=== PATIENT | female | born 1955 | race Caucasian/White ===

== ENCOUNTER → 2017-07-29 | Outpatient (CLI) | payer OTHER ==
[~2017-07-29] MED LIST: CALCAVITDA PO; DULO60; Glucophage1000 MG PO; Humalog Mi100 UNIT/4; INSULANPEN SC; NAPR220 PO
== END | disposition home or self-care (01) ==
LOC: LAB 11:59 → LAB SHORT 11:59
PROVIDERS: Physician Assistant
DX: Z12.4 Encounter for screening for malignant neoplasm of cervix (principal)
CPT/HCPCS: 87624; G0123

== ENCOUNTER 2017-11-06 19:04 | Emergency (ER) | payer OTHER ==
[~2017-11-06] VITALS: Ht 170.2 cm; Wt 93.0 kg
== END 2017-11-06 22:43 | disposition home or self-care (01) ==
LOC: ER 19:04
DX: M25.562 Pain in left knee (principal); M25.561 Pain in right knee; Z91.048 Other nonmedicinal substance allergy status; Z79.4 Long term (current) use of insulin; Z79.84 Long term (current) use of oral hypoglycemic drugs; Z79.899 Other long term (current) drug therapy; F32.9 Major depressive disorder, single episode, unspecified; I10 Essential (primary) hypertension; E11.9 Type 2 diabetes mellitus without complications
CPT/HCPCS: 73562-LT; 99283-25

== ENCOUNTER → 2018-07-29 | Outpatient (CLI) | payer OTHER ==
[~2018-07-29] MED LIST changes: +ASPI81CH; +GLIP5; +IBUP400; +Lisinopril2.5 MG; +MELA3; +Pravastatin Sod40 MG
== END | disposition home or self-care (01) ==
LOC: LAB SHORT 10:06 → LAB EV 10:06
DX: L02.512 Cutaneous abscess of left hand (principal)
CPT/HCPCS: 87070; 87077; 87147; 87186; 87205

== ENCOUNTER 2019-01-10 06:44 | Emergency (ER) | payer MEDICARE, OTHER ==
[~2019-01-10] VITALS: Ht 167.6 cm; Wt 90.7 kg
[2019-01-10 07:32] LABS: BASOPHILS ABSOLUTE AUTO 0.02 K/mm3 (0.00-0.23); BASOPHILS PERCENT AUTO 0 % (0-2); EOSINOPHILS ABSOLUTE AUTO 0.09 K/mm3 (0.00-0.68); EOSINOPHILS PERCENT AUTO 2 % (0-6); Hematocrit 39.6 % (33.0-51.0); IMMATURE GRAN ABSOLUTE AUTO 0.02 K/mm3 (0.00-0.10); IMMATURE GRAN PERCENT AUTO 0 % (0-1); LYMPHOCYTES ABSOLUTE AUTO 0.63 K/mm3 (0.84-5.20); LYMPHOCYTES PERCENT AUTO 13 % (21-46); MONOCYTES ABSOLUTE AUTO 0.47 K/mm3 (0.16-1.47); MONOCYTES PERCENT AUTO 10 % (4-13); Mean Corpuscular HGB 29.5 pg (26.0-34.0); Mean Corpuscular HGB Conc 32.8 g/dL (31.5-36.5); Mean Corpuscular Volume 90 fL (80-100); Mean Platelet Volume 9.7 fL (9.1-12.4); NEUTROPHILS ABSOLUTE AUTO 3.66 K/mm3 (1.96-9.15); NEUTROPHILS PERCENT AUTO 75 % (41-73); Platelet Count 187 K/mm3 (150-400); RDW Coefficient Variation 12.6 % (11.7-14.2); RDW Standard Deviation 41.2 fL (35.1-46.3); Red Blood Cell Count 4.41 M/mm3 (3.80-5.20); White Blood Cell Count 4.89 K/mm3 (4.00-11.30)
[2019-01-10] MEDS ORDERED: METF500 PO (07:32)
[2019-01-10 07:44] LABS: Anion Gap 8 mmol/L (6-16); Blood Urea Nitrogen 14 mg/dL (8-24); CO2, Blood 25 mmol/L (21-32); Calcium, Blood 8.9 mg/dL (8.5-10.1); Chloride, Blood 104 mmol/L (98-108); Creatinine, Blood 0.56 mg/dL (0.40-1.00); Glomerular Filtration Rate >60 (60-); Glucose, Blood 413 mg/dL (70-99); Potassium, Blood 4.1 mmol/L (3.5-5.5); Sodium, Blood 137 mmol/L (136-145)
[2019-01-10] MEDS ORDERED: Ultram50 MG PO (08:34)
== END 2019-01-10 08:46 | disposition home or self-care (01) ==
LOC: ER 06:44
PROVIDERS: Emergency Medicine
DX: S20.212A Contusion of left front wall of thorax, initial encounter (principal); E11.65 Type 2 diabetes mellitus with hyperglycemia; Z91.048 Other nonmedicinal substance allergy status; Z79.4 Long term (current) use of insulin; Z79.899 Other long term (current) drug therapy; Z79.82 Long term (current) use of aspirin; F32.9 Major depressive disorder, single episode, unspecified; I10 Essential (primary) hypertension; W01.118A Fall on same level from slipping, tripping and stumbling with subsequent striking against other sharp object, initial encounter
CPT/HCPCS: 71046; 80048; 85025; 93005; 93010; 96374; 96375; 99284-25; J2405; J3010

== ENCOUNTER → 2019-01-25 | Outpatient (CLI) | payer MEDICARE ==
[~2019-01-25] MED LIST changes: +METF500 PO; +Ultram50 MG PO
== END | disposition home or self-care (01) ==
LOC: LAB EV 18:12 → LAB SHORT 18:12
DX: E11.65 Type 2 diabetes mellitus with hyperglycemia (principal)
CPT/HCPCS: 87086

== ENCOUNTER 2019-03-16 08:48 | Emergency (ER) | payer MEDICARE ==
[~2019-03-16] VITALS: Ht 167.6 cm; Wt 99.8 kg
[~2019-03-16 08:48] MED LIST changes: -DULO60; +DULO60 PO; -Humalog Mi100 UNIT/4; +Humalog Mi100 UNIT/4 SC; -Lisinopril2.5 MG; +Lisinopril2.5 MG PO; -Pravastatin Sod40 MG; +Pravastatin Sod40 MG PO
[2019-03-16 09:33] LABS: BASOPHILS ABSOLUTE AUTO 0.01 K/mm3 (0.00-0.23); BASOPHILS PERCENT AUTO 0 % (0-2); EOSINOPHILS ABSOLUTE AUTO 0.01 K/mm3 (0.00-0.68); EOSINOPHILS PERCENT AUTO 0 % (0-6); Hematocrit 39.8 % (33.0-51.0); IMMATURE GRAN ABSOLUTE AUTO 0.03 K/mm3 (0.00-0.10); IMMATURE GRAN PERCENT AUTO 0 % (0-1); LYMPHOCYTES ABSOLUTE AUTO 0.64 K/mm3 (0.84-5.20); LYMPHOCYTES PERCENT AUTO 6 % (21-46); MONOCYTES ABSOLUTE AUTO 0.84 K/mm3 (0.16-1.47); MONOCYTES PERCENT AUTO 8 % (4-13); Mean Corpuscular HGB 28.8 pg (26.0-34.0); Mean Corpuscular HGB Conc 32.7 g/dL (31.5-36.5); Mean Corpuscular Volume 88 fL (80-100); Mean Platelet Volume 9.6 fL (9.1-12.4); NEUTROPHILS ABSOLUTE AUTO 8.73 K/mm3 (1.96-9.15); NEUTROPHILS PERCENT AUTO 85 % (41-73); Platelet Count 184 K/mm3 (150-400); RDW Coefficient Variation 12.8 % (11.7-14.2); RDW Standard Deviation 41.2 fL (35.1-46.3); Red Blood Cell Count 4.51 M/mm3 (3.80-5.20); White Blood Cell Count 10.26 K/mm3 (4.00-11.30)
[2019-03-16 09:47] LABS: Alanine Aminotransfer (ALT/SGP 28 U/L (12-78); Albumin/Globulin Ratio 0.7 (0.8-1.8); Alk Phos 179 U/L (50-136); Anion Gap 7 mmol/L (6-16); Aspartate Aminotrans (AST/SGOT 26 U/L (12-37); Bilirubin, Total 1.2 mg/dL (0.1-1.0); Blood Urea Nitrogen 9 mg/dL (8-24); Bun/Creatinine Ratio 18.1 (12.0-20.0); CO2, Blood 27 mmol/L (21-32); Calcium, Blood 8.5 mg/dL (8.5-10.1); Chloride, Blood 101 mmol/L (98-108); Globulin, Blood 4.2 g/dL (2.2-4.0); Glomerular Filtration Rate >60 (60-); Glucose, Blood 331 mg/dL (70-99); Potassium, Blood 4.3 mmol/L (3.5-5.5); Sodium, Blood 135 mmol/L (136-145); Total Protein, Blood 7.2 g/dL (6.4-8.2); Troponin I <0.015 ng/mL (0.000-0.040)
[2019-03-16 10:19] LABS: Influenza A Negative (NEGATIVE); Influenza B Negative (NEGATIVE)
[2019-03-16] MEDS ORDERED: Zithromax250 MG PO (10:46)
[2019-03-16] MEDS ORDERED: ALBU90OI INH (10:46)
[2019-03-16] MEDS ORDERED: PRED20 PO (10:51)
== END 2019-03-16 10:55 | disposition home or self-care (01) ==
LOC: ER 08:48
PROVIDERS: Physician Assistant
DX: R05 Cough (principal); I10 Essential (primary) hypertension; E11.9 Type 2 diabetes mellitus without complications; F32.9 Major depressive disorder, single episode, unspecified; Z79.899 Other long term (current) drug therapy
CPT/HCPCS: 36415; 71046; 80053; 84484; 85025; 87804; 93005; 93010; 96360; 99284-25; J7030

== ENCOUNTER 2019-03-21 02:25 | Emergency (ER) | payer MEDICARE ==
[~2019-03-21] VITALS: Ht 167.6 cm; Wt 91.2 kg
[~2019-03-21 02:25] MED LIST changes: +ALBU90OI INH; +PRED20 PO; +Zithromax250 MG PO
[2019-03-21 03:36] LABS: BASOPHILS ABSOLUTE AUTO 0.02 K/mm3 (0.00-0.23); BASOPHILS PERCENT AUTO 0 % (0-2); EOSINOPHILS ABSOLUTE AUTO 0.03 K/mm3 (0.00-0.68); EOSINOPHILS PERCENT AUTO 0 % (0-6); Hematocrit 39.5 % (33.0-51.0); Hemoglobin 12.6 g/dL (11.5-16.0); IMMATURE GRAN ABSOLUTE AUTO 0.09 K/mm3 (0.00-0.10); IMMATURE GRAN PERCENT AUTO 1 % (0-1); LYMPHOCYTES ABSOLUTE AUTO 0.51 K/mm3 (0.84-5.20); LYMPHOCYTES PERCENT AUTO 4 % (21-46); MONOCYTES ABSOLUTE AUTO 1.12 K/mm3 (0.16-1.47); MONOCYTES PERCENT AUTO 10 % (4-13); Mean Corpuscular HGB 28.3 pg (26.0-34.0); Mean Corpuscular HGB Conc 31.9 g/dL (31.5-36.5); Mean Corpuscular Volume 89 fL (80-100); Mean Platelet Volume 9.4 fL (9.1-12.4); NEUTROPHILS ABSOLUTE AUTO 9.88 K/mm3 (1.96-9.15); NEUTROPHILS PERCENT AUTO 85 % (41-73); Platelet Count 276 K/mm3 (150-400); RDW Coefficient Variation 12.7 % (11.7-14.2); RDW Standard Deviation 41.1 fL (35.1-46.3); Red Blood Cell Count 4.46 M/mm3 (3.80-5.20); White Blood Cell Count 11.65 K/mm3 (4.00-11.30)
[2019-03-21 03:47] LABS: Source, Urine Clean Catch
[2019-03-21 03:49] LABS: Appearance, Urine Clear (Clear); Bilirubin, Urine Neg (Neg); Blood, Urine Neg (Neg); Color, Urine Yellow (P-Yellow); Glucose Qualitative, Urine 4+ (Neg); Ketones, Urine 4+ (Neg); Leukocyte Esterase, Urine Neg (Neg); Nitrite, Urine Neg (Neg); Protein, Urine 1+ (Neg); Specific Gravity, Urine 1.025 (1.003-1.022); Urobilinogen, Urine NORM (Normal)
[2019-03-21 03:52] LABS: Alanine Aminotransfer (ALT/SGP 19 U/L (12-78); Albumin, Blood 2.4 g/dL (3.4-5.0); Albumin/Globulin Ratio 0.5 (0.8-1.8); Alk Phos 154 U/L (50-136); Anion Gap 13 mmol/L (6-16); Aspartate Aminotrans (AST/SGOT 15 U/L (12-37); Bilirubin, Total 1.2 mg/dL (0.1-1.0); Blood Urea Nitrogen 9 mg/dL (8-24); Bun/Creatinine Ratio 17.9 (12.0-20.0); CO2, Blood 19 mmol/L (21-32); Calcium, Blood 8.6 mg/dL (8.5-10.1); Chloride, Blood 100 mmol/L (98-108); Globulin, Blood 4.4 g/dL (2.2-4.0); Glomerular Filtration Rate >60 (60-); Glucose, Blood 402 mg/dL (70-99); Sodium, Blood 132 mmol/L (136-145); Total Protein, Blood 6.8 g/dL (6.4-8.2)
== END 2019-03-21 07:36 | disposition home or self-care (01) ==
LOC: ER 02:25
PROVIDERS: Emergency Medicine
DX: S09.90XA Unspecified injury of head, initial encounter (principal); F32.9 Major depressive disorder, single episode, unspecified; I10 Essential (primary) hypertension; E11.9 Type 2 diabetes mellitus without complications; Z91.048 Other nonmedicinal substance allergy status; Z79.899 Other long term (current) drug therapy; Z79.4 Long term (current) use of insulin; Z79.82 Long term (current) use of aspirin; Z79.51 Long term (current) use of inhaled steroids; W18.2XXA Fall in (into) shower or empty bathtub, initial encounter
CPT/HCPCS: 36415; 70450; 72125; 80053; 83690; 85025; 93005; 93010; 96374; 99284-25; J2405

== ENCOUNTER 2019-03-22 19:49 | Inpatient (IN) | payer MEDICARE ==
[~2019-03-22] VITALS: Ht 172.7 cm; Wt 93.3 kg
[2019-03-22 20:22] LABS: PCO2 Arterial 12.7 mmHg (35-45); PO2 Arterial 94.1 mmHg (80-100)
[2019-03-22 20:24] LABS: BASOPHILS ABSOLUTE AUTO 0.12 K/mm3 (0.00-0.23); BASOPHILS PERCENT AUTO 1 % (0-2); EOSINOPHILS PERCENT AUTO 0 % (0-6); Hemoglobin 14.1 g/dL (11.5-16.0); IMMATURE GRAN ABSOLUTE AUTO 0.83 K/mm3 (0.00-0.10); IMMATURE GRAN PERCENT AUTO 4 % (0-1); LYMPHOCYTES ABSOLUTE AUTO 0.86 K/mm3 (0.84-5.20); LYMPHOCYTES PERCENT AUTO 4 % (21-46); MONOCYTES ABSOLUTE AUTO 2.28 K/mm3 (0.16-1.47); MONOCYTES PERCENT AUTO 10 % (4-13); Mean Corpuscular HGB 28.5 pg (26.0-34.0); Mean Corpuscular HGB Conc 30.7 g/dL (31.5-36.5); Mean Platelet Volume 9.2 fL (9.1-12.4); NEUTROPHILS ABSOLUTE AUTO 19.65 K/mm3 (1.96-9.15); NEUTROPHILS PERCENT AUTO 83 % (41-73); Platelet Count 538 K/mm3 (150-400); RDW Coefficient Variation 13.5 % (11.7-14.2); RDW Standard Deviation 45.5 fL (35.1-46.3); Red Blood Cell Count 4.95 M/mm3 (3.80-5.20); White Blood Cell Count 23.74 K/mm3 (4.00-11.30)
[2019-03-22 20:29] LABS: Mean Corpuscular Volume 93 fL (80-100)
[2019-03-22 20:43] LABS: Troponin I 0.069 ng/mL (0.000-0.040)
[2019-03-22 21:11] LABS: Beta-hydroxybutyrate 74.4 mg/dL (0.2-2.8)
[2019-03-22 21:12] LABS: Alanine Aminotransfer (ALT/SGP 20 U/L (12-78); Albumin, Blood 2.4 g/dL (3.4-5.0); Albumin/Globulin Ratio 0.4 (0.8-1.8); Alk Phos 218 U/L (50-136); Anion Gap 22 mmol/L (6-16); Aspartate Aminotrans (AST/SGOT 17 U/L (12-37); Bilirubin, Total 0.8 mg/dL (0.1-1.0); Blood Urea Nitrogen 11 mg/dL (8-24); Bun/Creatinine Ratio 16.4 (12.0-20.0); CO2, Blood 6 mmol/L (21-32); Calcium, Blood 8.6 mg/dL (8.5-10.1); Chloride, Blood 99 mmol/L (98-108); Creatinine, Blood 0.67 mg/dL (0.40-1.00); Globulin, Blood 5.6 g/dL (2.2-4.0); Glomerular Filtration Rate >60 (60-); Glucose, Blood 593 mg/dL (70-99); Potassium, Blood 4.6 mmol/L (3.5-5.5); Sodium, Blood 127 mmol/L (136-145)
[2019-03-22 22:00] LABS: Source, Urine Clean Catch
[2019-03-22 22:02] LABS: Bilirubin, Urine Neg (Neg); Blood, Urine 2+ (Neg); Glucose Qualitative, Urine 4+ (Neg); Ketones, Urine 4+ (Neg); Leukocyte Esterase, Urine Neg (Neg); Nitrite, Urine Neg (Neg); Protein, Urine 2+ (Neg); Urobilinogen, Urine NORM (Normal)
[2019-03-22 22:03] LABS: Appearance, Urine Clear (Clear); Color, Urine Yellow (P-Yellow)
[2019-03-22 22:15] LABS: Amorphous Light (0-Heavy); Bacteria Many /hpf; Hyaline Casts 0-2 /lpf (0-2); Mucus Light (0-Heavy); Squamous Epithelial Cells Mod /hpf (Few); White Blood Cells, Urine 0-2 /hpf (0-5)
[2019-03-22 22:59] LABS: Glucose, Blood 531 mg/dL (70-99)
--- NOTE | 2019-03-23 00:30 | NUR ---
PT ARRIVES TO ROOM ICU 13 FROM ED AT 2355. REPORT RECEIVED AND ASSUMED CARE. PT PRESENTS ON INSULIN DRIP AT 5 UNITS PER HOUR. CARDIAZEM DRIP AT 15MG/HOUR. WITH FLUID CHALLENGE AT 250 ML/HOUR. PT HAS TACHYCARDIA IN 150'S. THIS HAS BEGUN TO DECREASE. WILL TITRATE CARDIAZEM ABLE TO MAINTAIN HR AT OR BELOW 100 BPM. PT HAS NO COMPLAINTS OF ABDOMINAL PAIN OR DISTRESS. NO COMPLAINTS OF CHEST PAIN OR PRESSURE. WILL REVIEW CHART AND PLAN OF CARE FOR THIS PT.
[2019-03-23] MEDS ORDERED: GABA100 PO (00:48)
[2019-03-23] MEDS ORDERED: CENTRUM SILVER1 EAC2 PO (00:49)
[2019-03-23 01:10] LABS: Anion Gap 17 mmol/L (6-16); Blood Urea Nitrogen 10 mg/dL (8-24); Bun/Creatinine Ratio 18.5 (12.0-20.0); CO2, Blood 8 mmol/L (21-32); Calcium, Blood 7.5 mg/dL (8.5-10.1); Chloride, Blood 109 mmol/L (98-108); Creatinine, Blood 0.54 mg/dL (0.40-1.00); Glomerular Filtration Rate >60 (60-); Glucose, Blood 391 mg/dL (70-99); Potassium, Blood 4.4 mmol/L (3.5-5.5); Sodium, Blood 134 mmol/L (136-145)
--- NOTE | 2019-03-23 03:00 | NUR ---
PT HAS RETURN OF PCR LAB INDICATING SHE IS PARAINFLUENZA POSITIVE. PT CONTINUES ON ROOM AIR AND IS ABLE TO MAINTAIN > 90 PERCENT SATURATION. NO COMPLAINTS OTHER THAN COUGH. COMTINUING WITH INSULIN DRIP. CARDIAZEM DOWN TO 10 MG PER HOUR. WILL CONTINUE TO MONITOR.
[2019-03-23 03:51] LABS: Adenovirus Not Detected (NOT DETECT); Bordetella pertussis Not Detected (NOT DETECT); Chlamydophila pneumoniae Not Detected (NOT DETECT); Coronavirus 229E Not Detected (NOT DETECT); Coronavirus HKU1 Not Detected (NOT DETECT); Coronavirus NL63 Not Detected (NOT DETECT); Coronavirus OC43 Not Detected (NOT DETECT); Human Metapneumovirus Not Detected (NOT DETECT); Human Rhinovirus/Enterovirus Not Detected (NOT DETECT); Influenza A Not Detected (NOT DETECT); Influenza A/2009-H1 Not Detected (NOT DETECT); Influenza A/H1 Not Detected (NOT DETECT); Influenza A/H3 Not Detected (NOT DETECT); Influenza B Not Detected (NOT DETECT); Mycoplasma pneumoniae Not Detected (NOT DETECT); Parainfluenza Virus 1 Detected (NOT DETECT); Parainfluenza Virus 2 Not Detected (NOT DETECT); Parainfluenza Virus 3 Not Detected (NOT DETECT); Parainfluenza Virus 4 Not Detected (NOT DETECT); Respiratory Syncytial Virus Not Detected (NOT DETECT)
[2019-03-23 04:04] LABS: BASOPHILS PERCENT AUTO 1 % (0-2); EOSINOPHILS PERCENT AUTO 0 % (0-6); Hematocrit 40.9 % (33.0-51.0); IMMATURE GRAN ABSOLUTE AUTO 0.28 K/mm3 (0.00-0.10); IMMATURE GRAN PERCENT AUTO 1 % (0-1); LYMPHOCYTES ABSOLUTE AUTO 0.91 K/mm3 (0.84-5.20); LYMPHOCYTES PERCENT AUTO 5 % (21-46); MONOCYTES ABSOLUTE AUTO 1.69 K/mm3 (0.16-1.47); MONOCYTES PERCENT AUTO 8 % (4-13); Mean Corpuscular HGB Conc 31.8 g/dL (31.5-36.5); Mean Corpuscular Volume 91 fL (80-100); Mean Platelet Volume 8.9 fL (9.1-12.4); NEUTROPHILS ABSOLUTE AUTO 17.34 K/mm3 (1.96-9.15); NEUTROPHILS PERCENT AUTO 85 % (41-73); Platelet Count 379 K/mm3 (150-400); RDW Coefficient Variation 13.3 % (11.7-14.2); RDW Standard Deviation 43.8 fL (35.1-46.3); Red Blood Cell Count 4.49 M/mm3 (3.80-5.20); White Blood Cell Count 20.32 K/mm3 (4.00-11.30)
[2019-03-23 04:25] LABS: Troponin I 0.071 ng/mL (0.000-0.040)
[2019-03-23 04:36] LABS: Anion Gap 15 mmol/L (6-16); Blood Urea Nitrogen 8 mg/dL (8-24); Bun/Creatinine Ratio 16.3 (12.0-20.0); CO2, Blood 8 mmol/L (21-32); Calcium, Blood 7.7 mg/dL (8.5-10.1); Chloride, Blood 112 mmol/L (98-108); Creatinine, Blood 0.49 mg/dL (0.40-1.00); Glomerular Filtration Rate >60 (60-); Glucose, Blood 299 mg/dL (70-99); Potassium, Blood 4.4 mmol/L (3.5-5.5); Sodium, Blood 135 mmol/L (136-145)
--- NOTE | 2019-03-23 05:45 | NUR ---
PT HAS CONTINUED ON INSULIN DRIP, CURRENTLY AT 4 UNITS PER HOUR. MOST RECENT CBG BEING 249. WILL CONTACT MD FOR POTENTIAL IVF CHANGE. CARDIAZEM HAS BEEN TITRATED DOWN FROM 15 MG PER HOUR TO 5MG. PT CURRENTLY IN ATRIAL FLUTTER WITH RATE REMAINING 90'S. REMAINS WITH MOIST UNPRODUCTIVE COUGH. AFEBRILE. WILL CONTINUE TO MONITOR PT, AND WILL REPORT OFF TO ONCOMING RN.
--- NOTE | 2019-03-23 07:47 | NUR ---
ASSUMED CARE RECIEVED REPORT FROM DONNY SMITH. PT IS LYING IN BED ASLEEP. CURRENT GTTPS: INSULIN 4 UNITS/HR, CARDIZEM 5MG/HR, AND D5W 15OML/HR. BED LOW AND LOCKED. CALL LIGHT WITHIN REACH.
[2019-03-23 09:30] LABS: Anion Gap 10 mmol/L (6-16); Blood Urea Nitrogen 8 mg/dL (8-24); Bun/Creatinine Ratio 17.1 (12.0-20.0); CO2, Blood 13 mmol/L (21-32); Calcium, Blood 7.6 mg/dL (8.5-10.1); Chloride, Blood 114 mmol/L (98-108); Creatinine, Blood 0.47 mg/dL (0.40-1.00); Glomerular Filtration Rate >60 (60-); Glucose, Blood 226 mg/dL (70-99); Potassium, Blood 3.9 mmol/L (3.5-5.5); Sodium, Blood 137 mmol/L (136-145)
--- NOTE | 2019-03-23 14:44 | NUR ---
INSULIN LANTUS WAS GIVEN AT 1100. INSULIN GTTP INFUSING AT 6 UNITS/KG/HR AT THIS POINT. DR DOUGLAS WANTED ME TO BEGIN TITRATING TO OFF 2 HOURS AFTER LANTUS WAS GIVEN. SEE TITRATIONS IN FLOWSHEET. INSULIN OFF AT 1437. REGULAR ACTING INSULIN TO BE GIVEN 4-5 HOURS AFTER LANTUS WAS GIVEN. IT IS ON A Q6H SLIDING SCALE. WILL GIVE BETWEEN [phone].
[2019-03-23 15:56] LABS: Anion Gap 8 mmol/L (6-16); Blood Urea Nitrogen 7 mg/dL (8-24); Bun/Creatinine Ratio 14.7 (12.0-20.0); CO2, Blood 13 mmol/L (21-32); Calcium, Blood 7.5 mg/dL (8.5-10.1); Chloride, Blood 113 mmol/L (98-108); Creatinine, Blood 0.48 mg/dL (0.40-1.00); Glomerular Filtration Rate >60 (60-); Glucose, Blood 214 mg/dL (70-99); Potassium, Blood 3.8 mmol/L (3.5-5.5); Sodium, Blood 134 mmol/L (136-145); Troponin I 0.042 ng/mL (0.000-0.040)
--- NOTE | 2019-03-23 16:42 | NUR ---
UPDATE PLACED CALL TO DR DOUGLAS TO UPDATE HIM ON PT. TOLD ME TO KEEP HER ON CARDIZEM GTTP FOR NOW SHE IS STILL IN AFLUTTER, START HER ON ELIQUIS, AND GIVE HER A FLUID BOLUS TO HELP WITH LOWER BLOOD PRESSURES. TOLD ME NOT TO WORRY ABOUT PT/OT CONSULTATIONS QUITE YET. AND I INFORMED HIM ABOUT THE MOST RECENT LABS ANDD THE INSULIN SITUATION.
--- NOTE | 2019-03-23 17:55 | NUR ---
UPDATE/BLOOD PRESSURE PT WAS HAVING SEVERAL LOW BP'S IN A ROW; MAP<65. A 500CC BOLUS (OVER 2 HOURS) HAS BEEN INFUSING BP HAS SINCE NORMALIZED. SHE IS ALSO STILL GETTING HER LAST BAG OF D5-1/2NS WITH 20MEQ KCL. PT HAS NO COMPLAINTS OR DISCOMFORTS AT THIS MOMENT. SHE IS SLIGHTLY TACHYPNEIC, 24-30. O2 SATS ARE MAINTAINED IN THE MID 90'S. SHE IS ORIENTED TO SELF, PLACE, SITUATION AND FAMILY. AND SHE HAS VOIDED MULTIPLE TIMES TODAY, UNFORTUNATELY WERE UNMEASURED.
--- NOTE | 2019-03-23 18:49 | NUR ---
SHIFT SUMMARY PT HAS IMPROVED IN CONDITION THROUGHOUT THE DAY. CO2 INCREASED FROM 8-13; GAP IS DOWN TO 10, POTASSIUM HAS REMAINED NORMAL, AND SUGARS HAVE BECOME STABLE BETWEEN 170-220. SHE IS OFF THE INSULIN GTTP AND IS NOW RECEIVING LANTUS ONCE A DAY, AND REGULAR SLIDING SCALE Q6H. SHE IS STILL IN AFLUTTER AND REMAINS ON THE CARDIZEM GTTP AT 5MG/HR. SHE IS ON D5-1/2NS WITH 20MEQ KCL AT 150ML/HR. SHE DENIES PAIN AND SOB. SEE EARLIER NOTE REGARDING BRIEF SPAN OF HYPOTENSION. SHE WILL EVENTUALLY NEED PT AND OT EVALUATIONS AND TREATMENTS, I BELIEVE, FOR SHE IS VERY WEAK AND LIVES BY HERSELF AT HER HOME. BED LOW AND LOCKED. CALL LIGHT WITHIN REACH.
--- NOTE | 2019-03-23 20:00 | NUR ---
ASSUMPTION OF CARE: PT A&O, AFEBRILE. LUNG SOUNDS DIM IN BASES. SPO2 >90% ON RA, SOME SOB. PT IN AFLUTTER, HR IN 100S, SBP 90S. VOIDING. 2 IVS IN R AC SL AND 18G IN LAC. CARDIZEM AT 5MG, D51/2NS OFF AND DISCONNECTED. NO COMPLAINTS AT THIS TIME. WILL CONTINUE TO MONITOR.
[2019-03-24 04:10] LABS: BASOPHILS ABSOLUTE AUTO 0.03 K/mm3 (0.00-0.23); BASOPHILS PERCENT AUTO 0 % (0-2); EOSINOPHILS ABSOLUTE AUTO 0.07 K/mm3 (0.00-0.68); EOSINOPHILS PERCENT AUTO 1 % (0-6); Hematocrit 38.2 % (33.0-51.0); Hemoglobin 12.3 g/dL (11.5-16.0); IMMATURE GRAN ABSOLUTE AUTO 0.16 K/mm3 (0.00-0.10); IMMATURE GRAN PERCENT AUTO 1 % (0-1); LYMPHOCYTES PERCENT AUTO 6 % (21-46); MONOCYTES ABSOLUTE AUTO 1.16 K/mm3 (0.16-1.47); MONOCYTES PERCENT AUTO 9 % (4-13); Mean Corpuscular HGB Conc 32.2 g/dL (31.5-36.5); Mean Platelet Volume 9.3 fL (9.1-12.4); NEUTROPHILS ABSOLUTE AUTO 10.48 K/mm3 (1.96-9.15); NEUTROPHILS PERCENT AUTO 83 % (41-73); Platelet Count 315 K/mm3 (150-400); RDW Coefficient Variation 13.3 % (11.7-14.2); RDW Standard Deviation 41.2 fL (35.1-46.3); Red Blood Cell Count 4.39 M/mm3 (3.80-5.20)
[2019-03-24 04:11] LABS: Mean Corpuscular Volume 87 fL (80-100)
[2019-03-24 04:27] LABS: Anion Gap 9 mmol/L (6-16); Blood Urea Nitrogen 5 mg/dL (8-24); Bun/Creatinine Ratio 10.9 (12.0-20.0); CO2, Blood 17 mmol/L (21-32); Calcium, Blood 7.8 mg/dL (8.5-10.1); Chloride, Blood 110 mmol/L (98-108); Creatinine, Blood 0.46 mg/dL (0.40-1.00); Glomerular Filtration Rate >60 (60-); Glucose, Blood 209 mg/dL (70-99); Potassium, Blood 3.3 mmol/L (3.5-5.5); Sodium, Blood 136 mmol/L (136-145)
--- NOTE | 2019-03-24 05:37 | NUR ---
SHIFT SUMMARY: PT A&O, COOPERATIVE. AFEBRILE THROUGHOUT SHIFT. PT WAS IN AFLUTTER AT BEGINNING OF SHIFT. AT 1230 CONVERTED TO SR THEN BACK TO A FLUTTER AND THEN HAD A RUN OF ASYMPTOMATIC V TACH BEFORE GOING BACK INTO A FLUTTER. HR REMAINS IN THE 100S, SBP STABLE IN THE 90-100S. LUNG SOUNDS DIM IN BASES. SPO2 >90% ON RA WITH SOB AT TIMES. PT IS ABLE TO VOID USING BEDPAN, HOWEVER DOES HAVE EPISODES OF INCONTINENCE. RAC IV X 2-SL. L AC INFUSING WITH CARDIZEM AT 5MG. PT CURRENTLY RESTING COMFORTABLY.
--- NOTE | 2019-03-24 07:30 | NUR ---
ASSUMED CARE OF PATIENT; SEE ASSESSMENT CHARTING FOR DETAILS. LUNGS WITH INTERMITTENT RHONCHI IN UPPER LOBES WHICH CLEAR WITH COUGH; COUGH IS MOIST BUT NON-PRODUCTIVE. BIOX 92-95% ON ROOM AIR. MONITOR REMAINS WITH A-FLUTTER; RATE 80'S; VSS AND REMAINS AFEBRILE. OCCASIONALLY, WILL HAVE RUNS OF VENTRICULAR BEATS BUT ASYMPTOMATIC. APPETITE LIMITED BUT NO N/V. 2+ ANKLE/PEDAL EDEMA; PATIENT STATES THIS IS NOT UNCOMMON FOR HER. 3 PERIPHERAL IV SITES; ALL ARE SALINE LOCKED.
--- NOTE | 2019-03-24 09:02 | NUR ---
UP TO BSC WITH 1 PERSON ASSIST.; FELT SLIGHT DIZZYNESS ON RETURN TO BED BUT OVERALL TOLERATED WELL (FIRST TIME OOB SINCE ADMISSION). VOIDED 500ML OF MED. YELLOW URINE.
--- NOTE | 2019-03-24 09:29 | NUR ---
DR. CORBIN IN; PLANS TO CHANGE PATIENT TO PCU STATUS NOW THAT HER DKA AND AFIB STABILIZED; SEE ORDERS.
--- NOTE | 2019-03-24 11:05 | NUR ---
REPORT CALLED TO GORAN COWAN RN; PATIENT TO TRANSFER TO PCU 10.
--- NOTE | 2019-03-24 11:50 | NUR ---
TRANSFERRED TO PCU, ROOM 10, VIA RECLINER CHAIR. MEDS, CHART AND BELONGINGS WITH PATIENT. PATIENT UP IN CHAIR AFTER HER BATH AND TOLERATED WELL; REMAINS WITHOUT NEED OF OXYGEN AND RHYTHM REMAINS AFLUTTER WITH REASONABLE RATE.
--- NOTE | 2019-03-24 13:04 | NUR ---
Pt Transfer to PCU arrival at 1150 in wheelchair. Pt alert and oriented, but tired. VSS. Breathing even and unlabored on RA, lungs coarse to ausc and clears with strong cough. Pt to bsc with one moderate assist. pt with weak, unsteady gait. She is high fall risk. Non slip sock on to ensure safety, pt educated on calling before ambulation. Pt verabalized understanding. No acute concerns at this time.
[2019-03-24 15:29] LABS: Anion Gap 8 mmol/L (6-16); Blood Urea Nitrogen 7 mg/dL (8-24); Bun/Creatinine Ratio 16.5 (12.0-20.0); CO2, Blood 16 mmol/L (21-32); Calcium, Blood 7.6 mg/dL (8.5-10.1); Chloride, Blood 109 mmol/L (98-108); Creatinine, Blood 0.42 mg/dL (0.40-1.00); Glomerular Filtration Rate >60 (60-); Glucose, Blood 306 mg/dL (70-99); Potassium, Blood 3.5 mmol/L (3.5-5.5); Sodium, Blood 133 mmol/L (136-145)
--- NOTE | 2019-03-24 16:04 | NUR ---
Pt resting comfortably this afternoon. lungs continue to sound coarse and clear with cough. faint end expiratory wheeze auscultated in R middle andR lower lobes. pt denies SOB, breathing even and unlaboreded. Will continue to monitor.
--- NOTE | 2019-03-24 18:41 | NUR ---
Shift Summary No acute changes this shift. Pt remains alert and oriented, able to express needs and use call light. Up to bsc for voiding, uses FWW. Breathing is even and unlabored, non productive moist cough. VSS. Tele showing sinus rhythm since arrival to PCU. No acute concerns to note. Pt states "I'm feeling so much better today". Report off to NOC RN who assumes care.
--- NOTE | 2019-03-24 21:34 | NUR ---
A+O, RESTING in bed watching tv, took prescribed medication as prscribed, arms strong with full range of motion, good profusion extremities, legs weak, abx infusing with no s/sx of infection or infiltration, rm air, vss, able to eat a little more still not up to home rate, no abdmn pain, alarm on bed, will continue to monitor and treat as appropriate
[2019-03-25 04:26] LABS: BASOPHILS ABSOLUTE AUTO 0.03 K/mm3 (0.00-0.23); BASOPHILS PERCENT AUTO 0 % (0-2); EOSINOPHILS ABSOLUTE AUTO 0.08 K/mm3 (0.00-0.68); EOSINOPHILS PERCENT AUTO 1 % (0-6); Hematocrit 33.3 % (33.0-51.0); Hemoglobin 11.2 g/dL (11.5-16.0); IMMATURE GRAN ABSOLUTE AUTO 0.14 K/mm3 (0.00-0.10); IMMATURE GRAN PERCENT AUTO 1 % (0-1); LYMPHOCYTES ABSOLUTE AUTO 0.74 K/mm3 (0.84-5.20); LYMPHOCYTES PERCENT AUTO 8 % (21-46); MONOCYTES ABSOLUTE AUTO 0.84 K/mm3 (0.16-1.47); MONOCYTES PERCENT AUTO 9 % (4-13); Mean Corpuscular HGB 28.5 pg (26.0-34.0); Mean Corpuscular HGB Conc 33.6 g/dL (31.5-36.5); Mean Corpuscular Volume 85 fL (80-100); NEUTROPHILS ABSOLUTE AUTO 7.83 K/mm3 (1.96-9.15); NEUTROPHILS PERCENT AUTO 81 % (41-73); Platelet Count 276 K/mm3 (150-400); RDW Coefficient Variation 13.6 % (11.7-14.2); RDW Standard Deviation 41.6 fL (35.1-46.3); Red Blood Cell Count 3.93 M/mm3 (3.80-5.20); White Blood Cell Count 9.66 K/mm3 (4.00-11.30)
[2019-03-25 04:40] LABS: Anion Gap 8 mmol/L (6-16); Blood Urea Nitrogen 8 mg/dL (8-24); Bun/Creatinine Ratio 17.1 (12.0-20.0); CO2, Blood 20 mmol/L (21-32); Calcium, Blood 7.7 mg/dL (8.5-10.1); Chloride, Blood 109 mmol/L (98-108); Creatinine, Blood 0.47 mg/dL (0.40-1.00); Glomerular Filtration Rate >60 (60-); Glucose, Blood 211 mg/dL (70-99); Potassium, Blood 3.4 mmol/L (3.5-5.5); Sodium, Blood 137 mmol/L (136-145)
--- NOTE | 2019-03-25 06:34 | NUR ---
pt remains a+o, cheerful and cooperative, she has been medicated as prescribed, up to bsc with walker and standby assist, rm air, saline locked, will continue to monitor and treat until bsr is shared with day nurse and pt, remains weak but states she is feeling better, remains in isolation for mersa in the wound
--- NOTE | 2019-03-25 19:22 | NUR ---
SHIFT SUMMARY Pt remains alert and oriented, VSS, improved mobility this shift. Pt able to make needs knonw. No acute changes from initial shift assessment. Sinus rhythm on tele, denies chest pain or pressure. Breathing is even and unlabored, lunges clearing with cough. Pt with more energy today. Plan is for possible discharge tomorrow or status change. No acute concerns this shift
--- NOTE | 2019-03-25 19:59 | NUR ---
A+O, DENIES PAIN, LIMBS MOVE WELL, ABLE TO MAKE NEEDS KNOWN, LS CLEAR, ABX INFUSING WITH NO S/SX INFECTION OR INFILTRATION, CALL LIGHT IN REACH, RECEIVED REPORT FROM PREVIOUS SHIFT, MOVING TO AND FROM BATHROOM, NO PAIN WHEN URINATING, VSS, HEART RATE OF ST 110, WILL CONTINUE TO MONITOR AND TREAT
--- NOTE | 2019-03-25 21:13 | NUR ---
reported pain to arm where azithromyacin infusing, stopped, flushed with ns, pain, stopped, pt described it as ache from injection site up to shoulder, with itching, stopped abx started other abx via new pump line but same IV, no pain or itching reported, askd for notiication and checked in to verify lack of negative reaction to iv, called hospitalist reported symptoms, recommended holding rest (75/250) of abx, notify day shift, asked for call if any other s/sx of allergic reaction, will continue to monitor and treat as appropriate, pt currently sitting in bed in low position with call light in reach
[2019-03-26 04:05] LABS: BASOPHILS ABSOLUTE AUTO 0.03 K/mm3 (0.00-0.23); BASOPHILS PERCENT AUTO 0 % (0-2); EOSINOPHILS ABSOLUTE AUTO 0.07 K/mm3 (0.00-0.68); EOSINOPHILS PERCENT AUTO 1 % (0-6); Hematocrit 34.5 % (33.0-51.0); Hemoglobin 11.2 g/dL (11.5-16.0); IMMATURE GRAN ABSOLUTE AUTO 0.17 K/mm3 (0.00-0.10); IMMATURE GRAN PERCENT AUTO 2 % (0-1); LYMPHOCYTES ABSOLUTE AUTO 0.85 K/mm3 (0.84-5.20); LYMPHOCYTES PERCENT AUTO 10 % (21-46); MONOCYTES PERCENT AUTO 10 % (4-13); Mean Corpuscular HGB Conc 32.5 g/dL (31.5-36.5); Mean Corpuscular Volume 86 fL (80-100); Mean Platelet Volume 8.9 fL (9.1-12.4); NEUTROPHILS ABSOLUTE AUTO 6.27 K/mm3 (1.96-9.15); NEUTROPHILS PERCENT AUTO 76 % (41-73); Platelet Count 267 K/mm3 (150-400); RDW Coefficient Variation 13.7 % (11.7-14.2); RDW Standard Deviation 42.3 fL (35.1-46.3); White Blood Cell Count 8.19 K/mm3 (4.00-11.30)
[2019-03-26 04:26] LABS: Anion Gap 7 mmol/L (6-16); Blood Urea Nitrogen 6 mg/dL (8-24); Bun/Creatinine Ratio 11.7 (12.0-20.0); CO2, Blood 24 mmol/L (21-32); Calcium, Blood 7.7 mg/dL (8.5-10.1); Chloride, Blood 109 mmol/L (98-108); Creatinine, Blood 0.52 mg/dL (0.40-1.00); Glomerular Filtration Rate >60 (60-); Glucose, Blood 158 mg/dL (70-99); Potassium, Blood 3.4 mmol/L (3.5-5.5); Sodium, Blood 140 mmol/L (136-145)
--- NOTE | 2019-03-26 06:38 | NUR ---
a+o, ready to go home, labs looking good, potassium 3.3, no acute changes noted during shift, was resting comfortably each time went in to assess or to monitor, cbg's checked and recorded, treated per may, call light in reach, bed in low position, saline locked, on rm air, will continue to monitor and treat until share bsr with day staff and pt
[2019-03-26] MEDS ORDERED: ELIQUIS5 MG PO (09:57)
[2019-03-26] MEDS ORDERED: DOXY100 PO (09:58)
[2019-03-26] MEDS ORDERED: DILT60ER PO (09:58)
--- NOTE | 2019-03-26 11:21 | NUR ---
DISCHARGE: PT DISCHARGED TO HOME WITH HER MOM. PT ABLE TO TRANSFER SELF TO THEN CAR WITH HER CANE. FACESHEET FAXED TO [facility]. MEDS FAXED TO [facility] IS[facility] OPEN ON SUNDAYS. DISCHARGE INSTRUCTIONS REVIEWED WITH PT. PT VERBALIZED UNDERSTANDING OF ALL MEDICATION CHANGES AND FOLLOW UP APPT. ALL BELONGINGS SENT HOME WITH PT.
== END 2019-03-26 11:10 | disposition home health service (06) | DRG 871 ==
LOC: ER 19:49 → ICUW 23:43 → PCU 03-24 11:49
PROVIDERS: Emergency Medicine; Internal Medicine Endocrinology, Diabetes & Metabolism; Nurse Practitioner Acute Care; Physician Assistant; Student in an Organized Health Care Education/Training Program; ADMIT Internal Medicine
DX: A41.89 Other specified sepsis (principal); E11.10 Type 2 diabetes mellitus with ketoacidosis without coma; J12.2 Parainfluenza virus pneumonia; I48.92 Unspecified atrial flutter; I10 Essential (primary) hypertension; Z79.82 Long term (current) use of aspirin; Z90.13 Acquired absence of bilateral breasts and nipples; E11.40 Type 2 diabetes mellitus with diabetic neuropathy, unspecified; F32.9 Major depressive disorder, single episode, unspecified; R79.89 Other specified abnormal findings of blood chemistry; E66.3 Overweight; Z68.30 Body mass index [BMI] 30.0-30.9, adult; Z66 Do not resuscitate; Z79.4 Long term (current) use of insulin; Z85.3 Personal history of malignant neoplasm of breast
CPT/HCPCS: 0099U; 36415; 36600; 71045; 80048; 80053; 81001; 82010; 82803; 82947; 83605; 84484; 85025; 87040; 87077; 87086; 87186; 93005; 93010; 93306; 94760; 96361; 96365; 96366; 96368; 96375; 96376; 97116; 97162; 99285-25; A9270; J0456; J0696; J1650; J1815; J2765; J3480; J7030; J7050; J7070

== ENCOUNTER → 2020-09-03 | Outpatient (CLI) | payer MEDICARE, OTHER ==
[~2020-09-03] MED LIST changes: +CENTRUM SILVER1 EAC2 PO; +DILT60ER PO; +DOXY100 PO; +ELIQUIS5 MG PO; +GABA100 PO
== END ==
LOC: LAB SHORT 21:18
DX: L28.1 Prurigo nodularis (principal); D48.5 Neoplasm of uncertain behavior of skin; R21 Rash and other nonspecific skin eruption; L81.4 Other melanin hyperpigmentation; D22.5 Melanocytic nevi of trunk; L57.8 Other skin changes due to chronic exposure to nonionizing radiation; Z71.89 Other specified counseling
CPT/HCPCS: 87070; 87077; 87147; 87186; 87205

== ENCOUNTER → 2020-10-23 | Outpatient (CLI) | payer MEDICARE, OTHER | LOC: LAB SHORT 15:40 → LAB 15:40 | DX: D22.5 Melanocytic nevi of trunk (principal); D22.62 Melanocytic nevi of left upper limb, including shoulder; L08.9 Local infection of the skin and subcutaneous tissue, unspecified; L57.8 Other skin changes due to chronic exposure to nonionizing radiation; L85.3 Xerosis cutis; Z48.02 Encounter for removal of sutures; Z71.89 Other specified counseling | CPT/HCPCS: 87070; 87205 ==

== ENCOUNTER 2024-07-06 10:59 | Emergency (ER) | payer OTHER ==
[~2024-07-06] VITALS: Ht 167.6 cm; Wt 84.4 kg
[2024-07-06 11:24] LABS: BASOPHILS ABSOLUTE AUTO 0.02 K/mm3 (0.00-0.23); BASOPHILS PERCENT AUTO 0 % (0-2); EOSINOPHILS ABSOLUTE AUTO 0.07 K/mm3 (0.00-0.68); EOSINOPHILS PERCENT AUTO 1 % (0-6); Hematocrit 37.8 % (33.0-51.0); Hemoglobin 12.5 g/dL (11.5-16.0); IMMATURE GRAN ABSOLUTE AUTO 0.02 K/mm3 (0.00-0.10); IMMATURE GRAN PERCENT AUTO 0 % (0-1); LYMPHOCYTES ABSOLUTE AUTO 0.36 K/mm3 (0.84-5.20); LYMPHOCYTES PERCENT AUTO 7 % (21-46); MONOCYTES PERCENT AUTO 9 % (4-13); Mean Corpuscular HGB 29.6 pg (26.0-34.0); Mean Corpuscular HGB Conc 33.1 g/dL (31.5-36.5); Mean Corpuscular Volume 89 fL (80-100); Mean Platelet Volume 9.2 fL (9.1-12.4); NEUTROPHILS ABSOLUTE AUTO 4.49 K/mm3 (1.96-9.15); NEUTROPHILS PERCENT AUTO 82 % (41-73); Platelet Count 190 K/mm3 (150-400); RDW Coefficient Variation 13.7 % (11.7-14.2); RDW Standard Deviation 44.8 fL (35.1-46.3); Red Blood Cell Count 4.23 M/mm3 (3.80-5.20); White Blood Cell Count 5.46 K/mm3 (4.00-11.30)
[2024-07-06 11:27] LABS: Source, Urine Fem Cath
[2024-07-06 11:40] LABS: Albumin, Blood 2.5 g/dL (3.4-5.0); Albumin/Globulin Ratio 0.7 (0.8-1.8); Bun/Creatinine Ratio 16.3 (12.0-20.0); Calcium, Blood 8.6 mg/dL (8.5-10.1); Creatinine, Blood 0.86 mg/dL (0.40-1.00); Globulin, Blood 3.7 g/dL (2.2-4.0); Total Protein, Blood 6.2 g/dL (6.4-8.2)
[2024-07-06 11:53] LABS: Appearance, Urine Cloudy (Clear); Bilirubin, Urine Neg (Neg); Blood, Urine 5+ (Neg); Color, Urine Yellow (P-Yellow); Glucose Qualitative, Urine 4+ (Neg); Ketones, Urine 1+ (Neg); Leukocyte Esterase, Urine Neg (Neg); Nitrite, Urine Neg (Neg); Protein, Urine 2+ (Neg); Specific Gravity, Urine 1.015 (1.003-1.022); Urobilinogen, Urine NORM (Normal)
[2024-07-06 13:14] LABS: Bacteria Few /hpf; Red Blood Cells, Urine 50-100 /hpf (0-2); Squamous Epithelial Cells Few /hpf (Few); White Blood Cells, Urine 0-2 /hpf (0-5)
[2024-07-06 14:19] VITALS: BP 140/71
[2024-07-06] MEDS ORDERED: Morphine Sulfate 4 MG/1 ML Injection IV ONE (14:30)
[2024-07-06] MEDS ORDERED: Morphine Sulfat15 MG PO (14:37)
[2024-07-06] MEDS ORDERED: ONDA4ODT MM (14:37)
== END 2024-07-06 14:56 | disposition home or self-care (01) ==
LOC: ER 10:59
PROVIDERS: Student in an Organized Health Care Education/Training Program
DX: N13.2 Hydronephrosis with renal and ureteral calculous obstruction (principal); R31.9 Hematuria, unspecified; C79.51 Secondary malignant neoplasm of bone; C50.912 Malignant neoplasm of unspecified site of left female breast; I10 Essential (primary) hypertension; E78.5 Hyperlipidemia, unspecified; I48.91 Unspecified atrial fibrillation; E11.10 Type 2 diabetes mellitus with ketoacidosis without coma; Z79.4 Long term (current) use of insulin; Z79.899 Other long term (current) drug therapy; Z91.048 Other nonmedicinal substance allergy status
CPT/HCPCS: 74177; 80053; 81001; 83690; 85025; 99285-25; Q9967

== ENCOUNTER 2024-11-14 02:17 | Emergency (ER) | payer OTHER ==
[~2024-11-14] VITALS: Ht 167.6 cm; Wt 77.1 kg
[~2024-11-14 02:17] MED LIST changes: +Morphine Sulfat15 MG PO; +ONDA4ODT MM
[2024-11-14 03:12] LABS: Source, Urine Foley catheter
[2024-11-14 03:18] LABS: Bilirubin, Urine Neg (Neg); Glucose Qualitative, Urine 4+ (Neg); Ketones, Urine 2+ (Neg); Leukocyte Esterase, Urine 2+ (Neg); Protein, Urine 3+ (Neg); Specific Gravity, Urine 1.015 (1.003-1.022); Urobilinogen, Urine NORM (Normal)
[2024-11-14 03:31] LABS: Color, Urine Pale Yellow (P-Yellow)
[2024-11-14 03:32] LABS: Red Blood Cells, Urine 50-100 /hpf (0-2); White Blood Cells, Urine 25-50 /hpf (0-5)
[2024-11-14 04:20] LABS: BASOPHILS ABSOLUTE AUTO 0.02 K/mm3 (0.00-0.23); BASOPHILS PERCENT AUTO 0 % (0-2); EOSINOPHILS ABSOLUTE AUTO 0.03 K/mm3 (0.00-0.68); EOSINOPHILS PERCENT AUTO 1 % (0-6); Hematocrit 32.8 % (33.0-51.0); Hemoglobin 11.2 g/dL (11.5-16.0); IMMATURE GRAN ABSOLUTE AUTO 0.02 K/mm3 (0.00-0.10); IMMATURE GRAN PERCENT AUTO 0 % (0-1); LYMPHOCYTES ABSOLUTE AUTO 0.29 K/mm3 (0.84-5.20); LYMPHOCYTES PERCENT AUTO 5 % (21-46); MONOCYTES ABSOLUTE AUTO 0.57 K/mm3 (0.16-1.47); MONOCYTES PERCENT AUTO 9 % (4-13); Mean Corpuscular HGB Conc 34.1 g/dL (31.5-36.5); Mean Corpuscular Volume 85 fL (80-100); NEUTROPHILS ABSOLUTE AUTO 5.53 K/mm3 (1.96-9.15); NEUTROPHILS PERCENT AUTO 86 % (41-73); NRBC ABSOLUTE 0.00 K/mm3 (0.00-0.02); NRBC Auto 0.0 /100 WBC (0.0-0.2); Platelet Count 214 K/mm3 (150-400); RDW Coefficient Variation 13.4 % (11.7-14.2); RDW Standard Deviation 41.7 fL (35.1-46.3)
[2024-11-14 04:46] LABS: Alanine Aminotransfer (ALT/SGP 18.0 U/L (12-78); Albumin, Blood 2.3 g/dL (3.4-5.0); Albumin/Globulin Ratio 0.6 (0.8-1.8); Anion Gap 12.0 mmol/L (3-11); Aspartate Aminotrans (AST/SGOT 28.0 U/L (12-37); Bilirubin, Total 0.9 mg/dL (0.1-1.0); Blood Urea Nitrogen 17.0 mg/dL (8-24); CO2, Blood 22.0 mmol/L (21-32); Calcium, Blood 8.6 mg/dL (8.5-10.1); Chloride, Blood 98.0 mmol/L (98-108); Creatinine, Blood 0.77 mg/dL (0.40-1.00); Globulin, Blood 4.1 g/dL (2.2-4.0); Glucose, Blood 411.0 mg/dL (70-99); Potassium, Blood 3.9 mmol/L (3.5-5.5); Sodium, Blood 128.0 mmol/L (136-145); Total Protein, Blood 6.4 g/dL (6.4-8.2)
[2024-11-14] MEDS ORDERED: CEFP200 PO (05:30)
[2024-11-14] MEDS ORDERED: CefTRIAXone Sodium 1,000 MG in NS 100 ML IV ONE (05:30)
[2024-11-14 08:46] VITALS: BP 125/63
== END 2024-11-14 08:27 | disposition home or self-care (01) ==
LOC: ER 02:17
PROVIDERS: Emergency Medicine
DX: N13.6 Pyonephrosis (principal); C79.51 Secondary malignant neoplasm of bone; C77.3 Secondary and unspecified malignant neoplasm of axilla and upper limb lymph nodes; C50.912 Malignant neoplasm of unspecified site of left female breast; I10 Essential (primary) hypertension; E11.9 Type 2 diabetes mellitus without complications; E78.5 Hyperlipidemia, unspecified; I48.91 Unspecified atrial fibrillation; Z91.048 Other nonmedicinal substance allergy status; Z79.01 Long term (current) use of anticoagulants; Z79.4 Long term (current) use of insulin; Z79.899 Other long term (current) drug therapy
CPT/HCPCS: 51702; 51798; 74177; 80053; 81001; 85025; 87077; 87086; 87147; 87186; 96365-59; 99284-25; J0696; P9612; Q9967

== ENCOUNTER 2024-12-19 11:28 | Day surgery (SDC) | payer OTHER ==
[~2024-12-19] VITALS: Ht 167.6 cm; Wt 77.3 kg
[~2024-12-19 11:28] MED LIST changes: +CEFP200 PO; +Glycopyrrolate 0.2 MG/ML 1MLVIAL ONE; +Ondansetron HCl 2 MG / ML 2ML Vial ONE; +ePHEDrine Sulfate 50 MG/ML 1ML Injection ONE
[2024-12-19] MEDS ORDERED: Insulin Regular 100 UNIT/ML 10ML Vial ONE (13:55)
--- NOTE | 2024-12-19 14:05 | NUR ---
12/19/24 1405 Kilo Bailey 276, RN INFORMED AT 1340. RN NOTIFIED MD. MD ORDERED INSULIN 8 UNITS REGULAR HUMALIN SUBQ IN PRE-OP. 8 UNITS GIVEN PER ORDERS, 2MD RN WITNESS OF DOSE BY LAUREEN Neff RN.
[2024-12-19] MEDS ORDERED: Benzocaine Oral Spray 0.5ML UD ONE (14:43)
[2024-12-19] MEDS ORDERED: Glycopyrrolate 0.2 MG/ML 1MLVIAL ONE (14:58)
[2024-12-19] MEDS ORDERED: ePHEDrine Sulfate 50 MG/ML 1ML Injection ONE (15:20)
--- NOTE | 2024-12-19 16:08 | NUR ---
12/19/[id number] NOTIFIED BY PHONE OF PT BG 236. ORDER TO GIVE 6 UNITS REGULAR INSULIN SQ AND RECHECK BG IN 30 MINS.
[2024-12-19 16:14] VITALS: BP 110/63
== END 2024-12-19 17:03 | disposition home or self-care (01) ==
LOC: ORSCSDS 11:28
PROVIDERS: Internal Medicine Gastroenterology
PROC: 0DBH8ZX Excision of Cecum, Via Natural or Artificial Opening Endoscopic, Diagnostic (ICD-10-PCS; principal; 2024-12-19 13:00)
PROC: 0DB78ZX Excision of Stomach, Pylorus, Via Natural or Artificial Opening Endoscopic, Diagnostic (ICD-10-PCS; principal; 2024-12-19 13:00)
PROC: 0DBN8ZX Excision of Sigmoid Colon, Via Natural or Artificial Opening Endoscopic, Diagnostic (ICD-10-PCS; principal; 2024-12-19 13:00)
DX: Z12.11 Encounter for screening for malignant neoplasm of colon (principal); Z86.0100 Personal history of colon polyps, unspecified; K74.60 Unspecified cirrhosis of liver; D12.5 Benign neoplasm of sigmoid colon; D12.1 Benign neoplasm of appendix; I10 Essential (primary) hypertension; E78.5 Hyperlipidemia, unspecified; I48.91 Unspecified atrial fibrillation; Z79.01 Long term (current) use of anticoagulants; G47.33 Obstructive sleep apnea (adult) (pediatric); E11.9 Type 2 diabetes mellitus without complications; F41.9 Anxiety disorder, unspecified; F32.A Depression, unspecified; Z79.4 Long term (current) use of insulin; Z79.899 Other long term (current) drug therapy; Z85.42 Personal history of malignant neoplasm of other parts of uterus; Z85.3 Personal history of malignant neoplasm of breast; Z85.830 Personal history of malignant neoplasm of bone
CPT/HCPCS: 82947; 88305; 88342; A9270; J1815; J2003; J2405; J2704; J7120